=== PATIENT | female | born 1990 | race Caucasian/White ===

== ENCOUNTER 2017-09-25 11:24 | Outpatient (CLI) | payer OTHER ==
--- NOTE | 2017-09-25 14:31 | RAD ---
MODIFIED BARIUM SWALLOW IN THE PRESENCE OF THE SPEECH THERAPIST: HISTORY: A 27-year-old female with oropharyngeal dysphagia, globus sensation. FINDINGS: No laryngeal penetration, aspiration, or persistent pooling in the vallecula of the piriform sinuses is seen. Please see the recommendations of the speech therapist for further management. POS: [facility]
--- NOTE | 2017-09-25 14:49 | RAD ---
BIPHASIC ESOPHAGRAM: HISTORY: Dysphagia. FINDINGS: Swallowing is grossly normal. There is unobstructed flow of contrast through the esophagus into the stomach. No ulcer, stricture, mass, or diverticula is seen. No GE reflux is demonstrated during the Valsalva maneuver. The patient refused to swallow IMPRESSION: Normal esophagram. POS: [facility]
== END 2017-09-25 11:25 | disposition home or self-care (01) ==
LOC: RAD 11:24
PROVIDERS: ATTEND Internal Medicine Gastroenterology
DX: K21.9 Gastro-esophageal reflux disease without esophagitis (principal); R13.12 Dysphagia, oropharyngeal phase; F45.8 Other somatoform disorders
CPT/HCPCS: 74220; 74230

== ENCOUNTER 2018-11-14 13:32 | Outpatient (CLI) | payer OTHER ==
--- NOTE | 2018-11-14 14:25 | ULT ---
THYROID ULTRASOUND: HISTORY: Hypothyroidism. COMPARISON: None. TECHNIQUE: Real-time, pink-scale, and color evaluation of the thyroid is performed. FINDINGS: The isthmus measures 2 mm in AP dimension. The right lobe measures 5.2 x 1.6 x 1.3 cm. The left lob e measures 5 x 1.4 x 1.2 cm. No abnormal thyroid nodule. IMPRESSION: Vicky examination. POS: [facility]
== END 2018-11-14 13:33 | disposition home or self-care (01) ==
LOC: BICULT 13:32
PROVIDERS: ATTEND Family Medicine
DX: E03.9 Hypothyroidism, unspecified (principal)
CPT/HCPCS: 76536

== ENCOUNTER 2019-10-05 10:15 | Inpatient (IN) | payer SELFPAY ==
[2019-10-05 11:04] VITALS: BMI 27.9
[2019-10-05] MEDS ORDERED: HYDROcodone/Acetaminophen 5/325 mg Tablet PO PRN ×2 (11:23)
[2019-10-05] MEDS ORDERED: Lidocaine 1% (PF) 30 ML VIAL SC PRN (11:23)
[2019-10-05] MEDS ORDERED: Diphenoxylate HCl/Atropine Tablet PO PRN ×2 (11:23)
[2019-10-05] MEDS ORDERED: hydrALAZINE 20 MG/ML VIAL SLOW IVP PRN ×2 (11:23→20:42)
[2019-10-05] MEDS ORDERED: Docusate 100 MG CAP PO PRN (11:23)
[2019-10-05] MEDS ORDERED: Butorphanol Tartrate 1 MG/ML VIAL SLOW IVP PRN (11:23)
[2019-10-05] MEDS ORDERED: Misoprostol 200 MCG TAB PR PRN (11:23)
[2019-10-05] MEDS ORDERED: Acetaminophen 500 MG TAB PO PRN (11:23)
[2019-10-05] MEDS ORDERED: Ibuprofen 800 MG TAB PO PRN (11:23)
[2019-10-05] MEDS ORDERED: Ondansetron PF 4 MG/2 ML Vial IVP PRN ×3 (11:23→20:42)
[2019-10-05] MEDS ORDERED: Promethazine HCl 25 MG/ML VIAL IM PRN ×2 (11:23→14:47)
[2019-10-05] MEDS ORDERED: NS / Oxytocin 40 units/1000ml 1,000 ML IV PRN (11:23)
[2019-10-05] MEDS: Lactated Ringer's 1,000 ML IV SCH ×2 (11:28→14:51)
[2019-10-05] MEDS ORDERED: NS w/ Oxytocin 10 units 500 ML IV SCH ×2 (11:30)
[2019-10-05 12:19] LABS: Hemoglobin 8.6 g/dL (12.0-16.0); Mean Corpuscular HGB CONC 32.3 g/dL (32.0-36.0); Mean Corpuscular Hemoglobin 22.7 pg (27.0-31.0); Mean Corpuscular Volume 70.3 fL (78.0-98.0); Mean Platelet Volume 7.7 fL (7.4-10.4); Platelet Count 275 thou/uL (130-400); RBC Distribution Width 15.3 % (11.5-14.5); Red Blood Cell (RBC) Count 3.77 mill/uL (4.20-5.40); White Blood Cell (WBC) Count 9.1 thou/uL (4.8-10.8)
[2019-10-05 12:49] LABS: Syphilis Antibody Nonreactive (Nonreactive); Syphilis Antibody Index 0.04 S/CO (<1.00 Non-Reactive)
[2019-10-05 12:50] LABS: HBSAg Index 0.21 S/CO (0-0.99); Hep B Surf Ag Non-Reactive S/CO (NonReactive)
[2019-10-05] MEDS ORDERED: Fentanyl 4 mcg/Bup 0.1% Cadd 100 ML ONE (13:47)
[2019-10-05] MEDS ORDERED: Acetaminophen 325 MG TAB PO PRN (14:47)
[2019-10-05] MEDS ORDERED: Naloxone HCl 0.4 mg/ml Vial IVP PRN ×2 (14:47)
[2019-10-05] MEDS ORDERED: ePHEDrine/0.9% NaCl/PF SYRINGE 50 mg/10 ml SLOW IVP PRN (14:47)
[2019-10-05] MEDS ORDERED: Lactated Ringer's 500 ML IV PRN (14:47)
[2019-10-05] MEDS ORDERED: diphenhydrAMINE 50 MG/ML VIAL IVP PRN (14:47)
[2019-10-05] MEDS ORDERED: Fentanyl 4 mcg/Bupivacaine 0.1% Cassette 100 ML EPIDURAL SCH (15:00)
[2019-10-05] MEDS ORDERED: Communication Order-Pharmacy FS PRN (15:00)
[2019-10-05] MEDS ORDERED: ePHEDrine/0.9% NaCl/PF SYRINGE 50 mg/10 ml ONE (15:51)
[2019-10-05] MEDS ORDERED: Bupivacaine 0.25% HCL 30 ML VIAL ONE (15:51)
[2019-10-05] MEDS ORDERED: NS / Oxytocin 40 units/1000ml 1,000 ML ONE (20:08)
[2019-10-05] MEDS ORDERED: Lidocaine 1% (PF) 30 ML VIAL ONE (20:08)
[2019-10-05] MEDS ORDERED: Milk Of Magnesia 30 ML UDCUP PO PRN (20:42)
[2019-10-05] MEDS ORDERED: Zolpidem Tartrate 5 MG TAB PO PRN (20:42)
[2019-10-05] MEDS ORDERED: diphenhydrAMINE 25 MG CAP PO PRN (20:42)
[2019-10-05] MEDS ORDERED: Misoprostol 200 MCG TAB VAG PRN (20:42)
[2019-10-05] MEDS ORDERED: Lanolin Ointment 7 GM TUBE TOP PRN (20:42)
[2019-10-05] MEDS ORDERED: Acetaminophen/Codeine 30-300mg Tablet PO PRN ×2 (20:42)
[2019-10-05] MEDS ORDERED: Benzocaine-Menthol 82.5 ML CAN TOP PRN (20:42)
[2019-10-05] MEDS ORDERED: Adacel (T-DAP) 0.5 ML SYRINGE IM ONE (20:42)
[2019-10-05] MEDS ORDERED: Preparation H Ointment 28 GM TUBE PR PRN (20:42)
[2019-10-05] MEDS ORDERED: Bisacodyl 10 MG SUPP PR PRN (20:42)
[2019-10-05] MEDS ORDERED: NS / Oxytocin 40 units/1000ml 1,000 ML IV SCH (20:45)
[2019-10-05] MEDS: Docusate Calcium (SURFAK) 240 MG CAP PO SCH (21:00)
[2019-10-05] MEDS: Ibuprofen 800 MG TAB PO SCH (22:32)
[2019-10-06] MEDS: Ibuprofen 800 MG TAB PO SCH ×3 (06:35→23:02)
[2019-10-06] MEDS: Ferrous Sulfate 325 MG TAB PO SCH ×2 (08:36→16:54)
[2019-10-06] MEDS: Docusate Calcium (SURFAK) 240 MG CAP PO SCH ×2 (08:36→23:02)
[2019-10-06] MEDS: Prenatal Vitamin 1 TAB PO SCH (08:36)
[2019-10-06] MEDS ORDERED: Sodium Chloride 0.9% 10 ML ONE (23:03)
[2019-10-07] MEDS: Prenatal Vitamin 1 TAB PO SCH (07:41)
[2019-10-07] MEDS: Docusate Calcium (SURFAK) 240 MG CAP PO SCH (07:41)
[2019-10-07] MEDS: Ferrous Sulfate 325 MG TAB PO SCH (07:41)
[2019-10-07 08:19] VITALS: BP 116/69; TEMP 98.5
[2019-10-07] MEDS ORDERED: Sodium Chloride 0.9% 0 ML ONE (08:28)
[2019-10-07] MEDS: Ibuprofen 800 MG TAB PO SCH (08:34)
== END 2019-10-07 10:00 | disposition home or self-care (01) | DRG 806 ==
LOC: L&D/OP 10:15 → L&D 10:16 → 3SE 22:16
PROVIDERS: ADMIT Obstetrics & Gynecology; ATTEND Obstetrics & Gynecology
PROC: 10907ZC Drainage of Amniotic Fluid, Therapeutic from Products of Conception, Via Natural or Artificial Opening (ICD-10-PCS; principal; 2019-10-05)
PROC: 10E0XZZ Delivery of Products of Conception, External Approach (ICD-10-PCS; 2019-10-05)
DX: O99.62 Diseases of the digestive system complicating childbirth (principal); K90.41 Non-celiac gluten sensitivity; Z37.0 Single live birth; O99.284 Endocrine, nutritional and metabolic diseases complicating childbirth; O70.1 Second degree perineal laceration during delivery; Z3A.38 38 weeks gestation of pregnancy
CPT/HCPCS: 36415; 51702; 85027; 86780; 86850; 86900; 86901; 87340; J2001; J2590; S0020